=== PATIENT | male | born 1955 | race Caucasian/White ===

== ENCOUNTER → 2018-02-24 | Outpatient (CLI) | payer MEDICAID ==
[~2018-02-24] MED LIST: ALBU8.5H8 IH; ASPI81TA87 PO; BECL8.7A5 IH; DABI150 PO; FAMO20 PO; IPRAHFA IH; ISOS30TA6 PO; LISI-660 PO; METO25TA6 PO
== END | disposition home or self-care (01) ==
LOC: RADPV 11:57
PROVIDERS: ATTEND Internal Medicine Cardiovascular Disease
DX: I70.0 Atherosclerosis of aorta (principal); I50.9 Heart failure, unspecified; I48.91 Unspecified atrial fibrillation; I25.9 Chronic ischemic heart disease, unspecified
CPT/HCPCS: 71046